=== PATIENT | male | born 1965 | race Asian ===

== ENCOUNTER 2019-03-11 10:22 | Day surgery (SDC) | payer BC ==
[~2019-03-11] VITALS: Ht 170.2 cm; Wt 79.5 kg
[2019-03-11] VITALS (8 sets, daily range): BP systolic 102–128; BP diastolic 69–89; PULSE 76–88; TEMP 98
[~2019-03-11 10:22] MED LIST: ANXIETY MED; CONCERTA PO; LOPRESSOR 225 MG/TAB PO; PAXIL 10MG10 MG PO; RITALIN 20M20 MG/TAB PO
--- NOTE | 2019-03-11 10:35 | NUR ---
1035-Patient ambulated to [facility] [place] [facility] with steady gait noted. present with him. He is alert and oriented. Reports that bowel prep went well. 1103-Blood glucose checked and resulted 128. Patient reports taking oral medication to control diabetes and he took this last on 03-10-19. 1105-IV started x1 attempt to his right hand. Fluids infusing without difficulty. Call lewis in reach and instructed on usage.
[2019-03-11] MEDS ORDERED: LIPITOR 40MG TA40 MG PO (10:39)
[2019-03-11] MEDS ORDERED: LEVOXYL0.075 MG PO (10:40)
[2019-03-11] MEDS ORDERED: PRINIVIL20 MG PO (10:40)
[2019-03-11] MEDS ORDERED: ATIVAN 0.50.5 MG/TAB PO (10:41)
[2019-03-11] MEDS ORDERED: XIGDUO XR 2.51 EACH PO (10:42)
--- NOTE | 2019-03-11 16:11 | NUR ---
PT RETURNS FROM ENDO SUITE INTO BAY[facility]1. PT RETURNED TO BAY ON CART, PT VERY SLEEPY. VSS, AWAKES TO NAME, PT SNORING. LUNGS CLEAR, DIMINISHED. BOWEL SOUNDS PRESENT, HYPO. IV SITE PATENT, NO REDNESS OR SWELLING NOTED. WILL MONITOR PROGRESS.
--- NOTE | 2019-03-11 16:21 | NUR ---
PT TOLERATING FOOD AND FLUIDS WITHOUT DIFFICULTY. MORE AWAKE AND ORIENTATED. WILL CONT TO MONITOR.
--- NOTE | 2019-03-11 16:26 | NUR ---
PT EATING TOAST WITH BUTTER, OJ AND CRACKERS. WAS CALLED, TOLD HER HE WAS AWAKE AND EATING. DENIES NAUSEA,PAIN. WILL CONT TO MONITOR.
--- NOTE | 2019-03-11 16:33 | NUR ---
PT A/OX3. TOLERATING FOOD AND FLUIDS. DISCHARGE INSTRUCTIONS GIVEN, PT VOICES UNDERSTANDING. IV DC'D TORIGHT HAND WITHOUT DIFFICULTY. NO REDNESS OR SWELLING NOTED. PT DISCHARGED PER WC INTO PT VEHICLE, DRIVING.
== END 2019-03-11 15:17 | disposition home or self-care (01) ==
LOC: SDCO 10:22
DX: Z12.11 Encounter for screening for malignant neoplasm of colon (principal); K21.0 Gastro-esophageal reflux disease with esophagitis; K57.30 Diverticulosis of large intestine without perforation or abscess without bleeding; E11.9 Type 2 diabetes mellitus without complications; K22.70 Barrett's esophagus without dysplasia
CPT/HCPCS: J2250; J3010; J7030